=== PATIENT | male | born 1985 | race Caucasian/White ===

== ENCOUNTER 2018-07-07 20:42 | Emergency (ER) | payer OTHER ==
[~2018-07-07] VITALS: Ht 157.5 cm; Wt 83.9 kg
[2018-07-07 20:45] VITALS: BP 139/83
--- NOTE | 2018-07-07 20:47 | NUR ---
PT AMBULATED TO BED #7
--- NOTE | 2018-07-07 20:51 | NUR ---
PT BIB SELF TO THE ED WITH THE CHIEF C/O LEFT MIDDLE FINGER LACERATION TODAY. BLEEDING HAS STOPPED. MOVES FINGER, +SENSATION. STATES PAIN OF 5/10 AT THIS TIME. DENIES MEDICAL HX. DENIES ANY PROBLEM AT THIS TIME.
--- NOTE | 2018-07-07 20:58 | NUR ---
PA BELLA WITH PT
[2018-07-07] MEDS ORDERED: IBUPROFEN 600 MG TAB PO ONE (21:00)
[2018-07-07] MEDS ORDERED: BACITRACIN OINT 500 UNITS/GM PKT TP ONE (21:00)
[2018-07-07 21:36] VITALS: BP 139/83
--- NOTE | 2018-07-07 21:36 | NUR ---
Patient discharged with v/s stable. Written and verbal after care instructions given and explained. Patient verbalized understanding. Ambulatory with steady gait. All questions addressed prior to discharge. Advised to follow up with PMD. PT WAS GIVEN MEDICATION PRESCRIPTION BACITRACIN.
== END 2018-07-07 21:36 | disposition home or self-care (01) ==
LOC: MED 20:42
DX: S61.213A Laceration without foreign body of left middle finger without damage to nail, initial encounter (principal); W27.0XXA Contact with workbench tool, initial encounter; Y93.89 Activity, other specified; Y92.89 Other specified places as the place of occurrence of the external cause; Y99.8 Other external cause status
CPT/HCPCS: 99283

== ENCOUNTER 2023-01-22 07:00 | Emergency (ER) | payer OTHER ==
[~2023-01-22] VITALS: Ht 188 cm; Wt 92.1 kg
[2023-01-22 07:41] VITALS: BP 147/103; PULSE 78; RESP 18; TEMP 97.9; O2SAT 98
[2023-01-22] MEDS ORDERED: FLUORESCEIN OPTH STRIP 1 MG OP ONE (07:50)
[2023-01-22] MEDS ORDERED: IBUP-2213 PO (08:05)
[2023-01-22 08:11] VITALS: BP 147/103; PULSE 78; RESP 18; TEMP 97.9; O2SAT 98
== END 2023-01-22 08:11 | disposition home or self-care (01) ==
LOC: MED 07:00
DX: T15.92XA Foreign body on external eye, part unspecified, left eye, initial encounter (principal)
CPT/HCPCS: 99283

== ENCOUNTER 2023-03-27 08:11 | Emergency (ER) | payer OTHER ==
[~2023-03-27] VITALS: Ht 188 cm; Wt 89.4 kg
[~2023-03-27 08:11] MED LIST: IBUP-2213 PO
[2023-03-27 08:13] VITALS: BP 151/95; PULSE 78; RESP 16; TEMP 98; O2SAT 99
[2023-03-27] MEDS: FAMOTIDINE 20 MG TAB PO ONE (08:39)
[2023-03-27] MEDS: DEXAMETHASONE 10 MG/ML VIAL IM ONE (08:39)
[2023-03-27] MEDS ORDERED: HYD2.5O TP (08:40)
[2023-03-27 08:52] VITALS: BP 145/76; PULSE 78; RESP 16; TEMP 98; O2SAT 99
== END 2023-03-27 08:55 | disposition home or self-care (01) ==
LOC: MED 08:11
DX: L30.9 Dermatitis, unspecified (principal); Z79.899 Other long term (current) drug therapy
CPT/HCPCS: 96372; 99283; J1100

== ENCOUNTER 2023-04-11 13:52 | Emergency (ER) | payer OTHER ==
[~2023-04-11] VITALS: Ht 188 cm; Wt 89.4 kg
[~2023-04-11 13:52] MED LIST changes: +HYD2.5O TP
[2023-04-11 14:07] VITALS: BP 141/97; PULSE 73; RESP 20; TEMP 97; O2SAT 97
== END 2023-04-11 15:21 | disposition home or self-care (01) ==
LOC: MED 13:52
DX: R21 Rash and other nonspecific skin eruption (principal); L29.9 Pruritus, unspecified; Z79.899 Other long term (current) drug therapy
CPT/HCPCS: 99281